=== PATIENT | female | born 1955 | race Caucasian/White ===

== ENCOUNTER 2018-12-27 13:24 | Emergency (ER) | payer BC ==
[2018-12-27] MEDS: HYDROCODONE/APAP (10/325) TAB PO (15:00)
[2018-12-27] MEDS: ONDANSETRON (ODT) 4 MG TAB ODT (15:00)
[2018-12-27] MEDS: MECLIZINE 12.5 MG TAB PO (15:00)
== END 2018-12-27 16:15 | disposition home or self-care (01) ==
LOC: FTE 13:24
DX: R51 Headache (principal); R11.0 Nausea
CPT/HCPCS: 70450; 99284-25